=== PATIENT | male | born 1940 | race Caucasian/White ===

== ENCOUNTER → 2019-03-30 | Outpatient (CLI) | payer MEDICARE, OTHER, MEDICAID | END | disposition home or self-care (01) | LOC: RAD 09:35 | DX: R05 Cough (principal); M54.5 Low back pain | CPT/HCPCS: 71046; 72100 ==

== ENCOUNTER 2019-04-28 09:42 | Emergency (ER) | payer MEDICARE, OTHER | END 2019-04-28 11:38 | disposition home or self-care (01) | LOC: FTE 09:42 | DX: H60.392 Other infective otitis externa, left ear (principal) | CPT/HCPCS: 99283 ==

== ENCOUNTER 2019-05-05 13:38 | Emergency (ER) | payer MEDICARE, OTHER | END 2019-05-05 14:29 | disposition home or self-care (01) | LOC: FTE 14:29 | DX: H60.90 Unspecified otitis externa, unspecified ear (principal) | CPT/HCPCS: 99282 ==